=== PATIENT | male | born 1960 | race Native Hawaiian/Other Pacific Islander ===

== ENCOUNTER 2020-08-01 12:25 | Outpatient (REF) | payer BC, SELFPAY ==
--- NOTE | 2020-08-01 12:30 | XR_ITS ---
EXAMINATION: XR SHOULDER, RIGHT CLINICAL INFORMATION: Right shoulder pain. COMPARISON: None TECHNIQUE: AP external rotation, Grashey, scapular Y, and axillary views of the right shoulder. FINDINGS: Mild right acromioclavicular degenerative joint changes are seen. There is no acute fracture or dislocation. The right glenohumeral joint is unremarkable. The soft tissues are unremarkable. XR/XR shoulder RT min 2V IMPRESSION: Mild right acromioclavicular degenerative joint changes. No acute fracture.
== END 2020-08-01 12:26 | disposition home or self-care (01) ==
LOC: HO.XRAY 12:25
PROVIDERS: Visit Provider Internal Medicine
DX: M25.511 Pain in right shoulder (principal)
CPT/HCPCS: 73030

== ENCOUNTER 2020-11-26 09:44 | Outpatient (REF) | payer BC, SELFPAY ==
[2020-11-26 10:36] LABS: MANUAL DIFF FLAG NO
[2020-11-26 10:46] LABS: Basophils Absolute Auto 0.1 X10*3/uL (0.0-0.2); Basophils Percent Auto 0.8 % (0-2); Eosinophils Absolute Auto 0.2 X10*3/uL (0.0-0.4); Eosinophils Percent Auto 2.4 % (0-4); Hemoglobin 16.3 g/dl (14.0-18.0); Imm Gran Abs Auto 0.05 X10*3/uL (0.00-0.03); Imm Gran Pct Auto 0.6 % (0.0-0.4); Lymphocytes Absolute Auto 1.7 X10*3/uL (1.2-4.9); Lymphocytes Percent Auto 21.7 % (20-40); Mean Corpuscular HGB Conc 34.7 g/dl (31.0-36.0); Mean Corpuscular Hemoglobin 33.7 pg (27.0-33.0); Mean Corpuscular Volume 97.1 fL (80-98); Mean Platelet Volume 9.3 fL (9.4-12.4); Monocytes Absolute Auto 0.6 X10*3/uL (0.1-1.2); Monocytes Percent Auto 7.4 % (2-11); Neutrophils Absolute Auto 5.3 X10*3/uL (2.0-8.3); Neutrophils Percent Auto 67.1 % (45-73); Platelet Count 361 X10*3/uL (160-400); Red Blood Count 4.84 X10*6/uL (4.60-5.80); Red Cell Distribution Width 11.4 % (11.0-16.0); White Blood Count 7.8 X10*3/uL (4.8-10.8)
[2020-11-26 11:19] LABS: Alanine Aminotransferase 25 U/L (0-40); Albumin Level 4.8 g/dL (3.5-5.0); Alkaline Phosphatase 88 U/L (39-117); Anion Gap 13 (12-20); Aspartate Amino Transferase 22 U/L (5-37); Bilirubin Total 0.9 mg/dL (0.0-1.0); Blood Urea Nitrogen 18 mg/dL (9-16); Calcium 10.4 mg/dL (8.4-10.2); Carbon Dioxide 30 mmol/L (22-29); Chloride 101 mmol/L (96-108); Cholesterol 282 mg/dL; Estimated Glomerular Filt Rate 56; Glucose Fasting 105 mg/dL (60-99); HDL Cholesterol 53 mg/dL; LDL Cholesterol Calculated 191 mg/dl; Potassium 4.2 mmol/L (3.3-5.1); Sodium 140 mmol/L (135-145); Triglycerides 192 mg/dL
[2020-11-26 11:41] LABS: Prostate Specific Antigen Scr 2.06 ng/mL (<0.05-4.0)
== END 2020-11-26 09:45 | disposition home or self-care (01) ==
LOC: HO.LAB 09:44
PROVIDERS: PCP Internal Medicine; Visit Provider Internal Medicine
DX: Z00.00 Encounter for general adult medical examination without abnormal findings (principal); Z12.5 Encounter for screening for malignant neoplasm of prostate; E11.9 Type 2 diabetes mellitus without complications; R35.1 Nocturia
CPT/HCPCS: 36415; 80053; 80061; 84153; 85025

== ENCOUNTER 2021-08-23 09:28 | Outpatient (REF) | payer OTHER, SELFPAY ==
--- NOTE | ~2021-08-23 | XR_ITS ---
EXAMINATION: XR ANKLE, LEFT CLINICAL INFORMATION: Pain COMPARISON: None TECHNIQUE: AP, lateral, and mortise views of the left ankle. FINDINGS: The malleoli appear intact and the ankle mortise is symmetric. There is no visible acute or healing fracture, dislocation, destructive process. Some mild spurring is seen at the tips of the medial and lateral malleolus. There is no ankle joint narrowing or erosive change. The retrocalcaneal recess is preserved. Posterior calcaneal spurring is present. There is mild soft tissue swelling overlying the medial and lateral malleolus. XR/XR ankle LT 2V IMPRESSION: 1. Mild soft tissue swelling overlying medial and lateral malleolus. No acute bony abnormality. 2. Posterior calcaneal spurs.
[2021-08-23 11:09] LABS: Uric Acid 7.5 mg/dL (3.4-7.0)
== END 2021-08-23 09:29 | disposition home or self-care (01) ==
LOC: HO.XRAY 09:28
PROVIDERS: PCP Internal Medicine; Visit Provider Internal Medicine
DX: M25.572 Pain in left ankle and joints of left foot (principal); M10.9 Gout, unspecified
CPT/HCPCS: 36415; 73600; 84550

== ENCOUNTER 2021-12-06 13:59 | Outpatient (RCR) | payer OTHER, SELFPAY ==
[2021-12-06 14:04] VITALS: BP 128/70; PULSE 75; O2SAT 95
--- NOTE | 2021-12-06 14:47 | MHC.PT.EP ---
[facility] [place] Office [place] Office [place] Office [address] Alvaro Du [address] [phone] F: [phone] F: [phone] F: [phone] F: [phone] Physical Therapy Plan of Care Date of Evaluation: Date of Surgery: Diagnosis: This is a 61 yo male presenting to skilled PT with a script for vertigo. Assessment: This is a 61 yo male presenting to skilled PT with a script for vertigo. Patient reporting that he had symptoms about 4 wks ago. He had a feeling of dizziness, lightheadedness, like I was going to pass out. He also recalled spinning. He saw his MD who prescribed meclizine. As time went on the spinning stopped but he had symptoms looking up or going downstairs. He has a CT scan referral. He now comes to the clinic no longer symptomatic with rolling at night or with turning his head. Examination shows normal oculomotor tests, (-) VBI B, and normal cervical AROM (except extension which is limited). He was (-) for BPPV with tati-hallpike and roll test. Patient demos normal balance scores on DGI and [place]. S/S are not consistent with BPPV at this time, it appears that his symptoms cleared with time. I am putting patient on a 30 day at this time due to lack of vertigo and patient appearing more at baseline. Educated him on anatomy of inner ear, symptoms, management of symptoms and to call our office if anything returned. Frequency and Duration: The patient will be seen 2x/wk for 4wks Short Term Goals: reassess if needed Correction Goals: I in HEP No nystagmus or symptoms in any testing positions No LOB noted and normal scores on balance tests Return to work in full Treatment Plan: Modalities to reduce pain, spasms and effusion. Manual therapy to restore motion and function. Therapeutic exercise to improve strength and flexibility. Neuromuscular re-education for posture and balance. Therapeutic activities to return to functional activities of daily living. Electronically signed by: Baylee Kwan PT Please sign and return to therapist. Thank you for your referral.
--- NOTE | 2022-01-08 12:44 | MHC.PT.DC ---
[facility] [place] Office [place] Office [place] Office [address] Alvaro Du [address] [phone] F: [phone] F: [phone] F: [phone] F: [phone] Physical Therapy Discharge Report Diagnosis: This is a 61 yo male presenting to skilled PT with a script for vertigo. Date of Surgery: Date of Evaluation: 12/06/21 Date of Discharge: 01/08/22 Treatments to Date: 1 Cancellations to Date: 0 No Shows to Date: 0 Discharge Status: Discharge Summary: This is a 61 yo male presenting to skilled PT with a script for vertigo. Patient reporting that he had symptoms about 4 wks ago. He had a feeling of dizziness, lightheadedness, like I was going to pass out. He also recalled spinning. He saw his MD who prescribed meclizine. As time went on the spinning stopped but he had symptoms looking up or going downstairs. He has a CT scan referral. He now comes to the clinic no longer symptomatic with rolling at night or with turning his head. Examination shows normal oculomotor tests, (-) VBI B, and normal cervical AROM (except extension which is limited). He was (-) for BPPV with tati-hallpike and roll test. Patient demos normal balance scores on DGI and [place]. S/S are not consistent with BPPV at this time, it appears that his symptoms cleared with time. I am putting patient on a 30 day at this time due to lack of vertigo and patient appearing more at baseline. Educated him on anatomy of inner ear, symptoms, management of symptoms and to call our office if anything returned. Kept chart open for 30 days prior to DC Electronically signed by: Baylee Kwan PT Please sign and return to therapist. Thank you for your referral.
== END 2022-01-08 12:44 | disposition home or self-care (01) ==
LOC: HO.PTCHIC 13:59
PROVIDERS: PCP Internal Medicine; Visit Provider Internal Medicine
DX: R42 Dizziness and giddiness (principal)
CPT/HCPCS: 97112; 97161

== ENCOUNTER 2022-07-07 10:37 | Outpatient (REF) | payer OTHER, SELFPAY ==
[2022-07-07 10:51] LABS: MANUAL DIFF FLAG NO
[2022-07-07 12:10] LABS: Basophils Percent Auto 0.5 % (0-2); Eosinophils Absolute Auto 0.1 X10*3/uL (0.0-0.4); Hemoglobin 15.6 g/dl (14.0-18.0); Imm Gran Abs Auto 0.04 X10*3/uL (0.00-0.03); Imm Gran Pct Auto 0.7 % (0.0-0.4); Lymphocytes Absolute Auto 1.4 X10*3/uL (1.2-4.9); Lymphocytes Percent Auto 24.3 % (20-40); Mean Corpuscular HGB Conc 34.7 g/dl (31.0-36.0); Mean Corpuscular Hemoglobin 33.4 pg (27.0-33.0); Mean Corpuscular Volume 96.4 fL (80.0-98.0); Mean Platelet Volume 9.4 fL (9.4-12.4); Monocytes Absolute Auto 0.5 X10*3/uL (0.1-1.2); Monocytes Percent Auto 8.8 % (2-11); Neutrophils Absolute Auto 3.8 x10*3/uL (2.0-8.3); Neutrophils Percent Auto 63.7 % (45-73); Platelet Count 326 X10*3/uL (160-400); Red Blood Count 4.67 X10*6/uL (4.60-5.80); White Blood Count 5.9 X10*3/uL (4.8-10.8)
[2022-07-07 12:52] LABS: Alanine Aminotransferase 23 U/L (0-40); Albumin Level 4.6 g/dL (3.5-5.0); Alkaline Phosphatase 80 U/L (39-117); Anion Gap 11 (12-20); Aspartate Amino Transferase 23 U/L (5-37); Bilirubin Total 0.7 mg/dL (0.0-1.0); Blood Urea Nitrogen 16 mg/dL (9-16); Calcium 9.8 mg/dL (8.4-10.2); Carbon Dioxide 30 mmol/L (22-29); Chloride 105 mmol/L (96-108); Cholesterol 256 mg/dL; Estimated Glomerular Filt Rate > 60; Glucose Fasting 97 mg/dL (60-99); HDL Cholesterol 49 mg/dL; LDL Cholesterol Calculated 176 mg/dl; Potassium 3.8 mmol/L (3.3-5.1); Prostate Specific Antigen Scr 1.71 ng/mL (<0.05-4.0); Sodium 142 mmol/L (135-145); Total Protein 7.5 g/dL (6.5-8.0); Triglycerides 159 mg/dL; Uric Acid 6.5 mg/dL (3.4-7.0)
== END 2022-07-07 10:38 | disposition home or self-care (01) ==
LOC: HO.LAB 10:37
PROVIDERS: PCP Internal Medicine; Visit Provider Internal Medicine
DX: Z00.00 Encounter for general adult medical examination without abnormal findings (principal); M10.9 Gout, unspecified; E78.5 Hyperlipidemia, unspecified; I10 Essential (primary) hypertension; Z13.0 Encounter for screening for diseases of the blood and blood-forming organs and certain disorders involving the immune mechanism; Z12.5 Encounter for screening for malignant neoplasm of prostate
CPT/HCPCS: 36415; 80053; 80061; 84153; 84550; 85025

== ENCOUNTER 2023-03-25 13:27 | Outpatient (AMB) | payer OTHER, SELFPAY ==
--- NOTE | 2023-03-25 13:29 | MHC.PC.OV ---
Vital Signs 03/25/23 13:31 Height 5 ft 5 in Weight 185 lb 6 oz BMI 30.8 BP 132/70 Blood Pressure Location Lt brachial Position Sitting Pulse 51 Pulse Source Pulse Oximeter Pulse Oximetry (%) 94 Oxygen Delivery Method Room Air Intake Visit Reasons: 4 month follow up Intake Note: Patient is here to follow up on HTN, Vertigo, Gout. Marble Polisher Required: No Fig Bar Machine Operator: Not Required per policy Accompanied by: Self / Same As Patient Allergies lisinopril Adverse Reaction (Unknown, Verified 03/25/23 13:30) cough HAYFEVER Allergy (Unknown, Uncoded 03/25/23 13:30) RUNNY NOSE/SNEEZING/RUNNY EYES Medication List - Last Reconciled 03/25/23 by Kvng James MD allopurinol 300 mg PO DAILY amlodipine 5 mg PO DAILY cyclobenzaprine 10 mg PO TID PRN hydrochlorothiazide 25 mg PO DAILY meclizine 25 mg PO QID omeprazole 20 mg PO DAILY sertraline 50 mg PO DAILY Tobacco use date assessed: 11/05/22 Dental Screening Dental Screen Date: 03/25/23 Did you have a dental visit in the last 12 months?: Yes Did you have a dental problem in the last 6 months where you did not have access to dental care?: No Was dental information given to patient?: Patient has dentist HPI 4 month follow up HPI Details gout HTN and depression; stable [facility] Medical History (Updated 08/13/22 @ 12:29 by Kvng James MD) Hypertension Surgical History No history of previous surgery Family History (Updated 03/25/23 @ 13:36 by SAMAN Perez) Mother Cardiac arrhythmia Father Stomach cancer Brother No problems noted. Brother No problems noted. Brother No problems noted. Brother No problems noted. Son No problems noted. Family/Other Colon cancer Social History Housing: House Alcohol intake: current Alcohol intake frequency: 0-2 drinks per day Patient Tobacco Use Status: Never used Tobacco e-Cigarette/Vaping Use: Never Used Second Hand Smoke Exposure: No service: No Current occupational status: employed Cognitive needs: No Hearing needs: No Vision needs: Yes (GLASSES) Questionnaire PHQ-9 Over the last 2 weeks, how often have you been bothered by any of the following problems? Depression Screening Interpretation: Negative Source: Developed by Drs. Kavon Verdin, Selina Lindsey, Hayden Almeida and colleagues, with an educational burak from [employer]. Thrive Questionnaire Date Thrive assessed: 07/07/22 ELDER-7 AMB Questionnaire ELDER-7 Date ELDER - 7 assessed: 11/05/22 Source: Developed by Drs. Kavno Verdin, Selina Lindsey, Hayden Almeida and colleagues, with an educational burak from [employer]. Review of Systems Const Denies chills, Denies headache(s) and Denies weight loss ENT Denies headache(s) Card Denies chest pain, Denies syncope, Denies irregular heart rhythm and Denies dyspnea Resp Denies chest congestion, Denies cough and Denies dyspnea GI Denies abdominal pain, Denies change in stool character, Denies nausea and Denies vomiting Musc Denies deformity and Denies joint swelling Neuro Denies syncope and Denies headache(s) Physical exam (Primary Care) Vital Signs: Last Vital Signs Pulse 51 03/25/23 13:31 BP 132/70 03/25/23 13:31 Pulse Ox 94 03/25/23 13:31 Oxygen Delivery Method Room Air 03/25/23 13:31 BMI result Body Mass Index 30.8 Tobacco/Smoking Status: Tobacco use Status Tobacco use date assessed 11/05/22 03/25/23 13:37 Patient Tobacco Use Status Never used Tobacco 03/25/23 13:37 e-Cigarette/Vaping Use Never Used 03/25/23 13:37 Depression Screening Interpretation: Negative Thrive Assessment: Date of Thrive Assessment Date Thrive assessed 07/07/22 03/25/23 13:37 Const General: cooperative, comfortable and no acute distress Chest Chest palpation & inspection: normal inspection of the chest Resp Effort & Inspection: normal respiratory effort Auscultation: clear to auscultation bilaterally Percussion: percussion normal Cardio Jugular venous distension: no JVD Rate: regular rate Rhythm: regular rhythm GI Inspection: Yes normal to inspection Assessment and Plan Assessment & Plan (1) Depression: Code(s): F32.A - Depression, unspecified Plan: stable; same rx (2) Gout: Code(s): M10.9 - Gout, unspecified Plan: stable; same rx (3) Hypertension: Code(s): I10 - Essential (primary) hypertension Plan: stable; same rx Coding Level of Care Code Est Pt Level 4 (77976) Diagnoses Depression F32.A Gout M10.9 Hypertension I10
[2023-03-25 13:31] VITALS: BP 132/70; PULSE 51; O2SAT 94; BMI 30.8
== END 2023-03-25 13:43 | disposition home or self-care (01) ==
PROVIDERS: PCP Internal Medicine; Visit Provider Internal Medicine
DX: F32.A Depression, unspecified (principal); M10.9 Gout, unspecified; I10 Essential (primary) hypertension
CPT/HCPCS: 99214

== ENCOUNTER 2023-07-09 12:51 | Outpatient (AMB) | payer OTHER, SELFPAY ==
[2023-07-09 12:52] VITALS: BP 140/74; PULSE 65; O2SAT 97; BMI 31.9
--- NOTE | 2023-07-09 12:52 | A.OFFPC_ITS ---
Vital Signs 07/09/23 12:52 Height 5 ft 5 in Weight 192 lb BMI 31.9 BP 140/74 H Blood Pressure Location Lt brachial Position Sitting Pulse 65 Pulse Source Pulse Oximeter Pulse Oximetry (%) 97 Oxygen Delivery Method Room Air Intake Visit Reasons: Annual Exam Radiation Therapy Technologist Required: No Channeler: Not Required per policy Accompanied by: Self / Same As Patient Allergies lisinopril Adverse Reaction (Unknown, Verified 07/09/23 12:53) cough HAYFEVER Allergy (Unknown, Uncoded 07/09/23 12:53) RUNNY NOSE/SNEEZING/RUNNY EYES Medication List - Last Reconciled 07/10/23 by Kvng James MD allopurinol 300 mg PO DAILY amlodipine 5 mg PO DAILY cyclobenzaprine 10 mg PO TID PRN hydrochlorothiazide 25 mg PO DAILY meclizine 25 mg PO QID omeprazole 20 mg PO DAILY sertraline 50 mg PO DAILY Tobacco use date assessed: 11/05/22 Fall risk assessment: No Falls in past year Last assessed Fall Risk: 07/09/23 Dental Screening Dental Screen Date: 07/09/23 Did you have a dental visit in the last 12 months?: Yes Did you have a dental problem in the last 6 months where you did not have access to dental care?: No Was dental information given to patient?: Patient has dentist HPI Annual Exam HPI Details HTN Gout and depression on rx; doing well; compliant [facility] Medical History Hypertension Surgical History No history of previous surgery Family History Mother Cardiac arrhythmia Father Stomach cancer Brother No problems noted. Brother No problems noted. Brother No problems noted. Brother No problems noted. Son No problems noted. Family/Other Colon cancer Social History Housing: House Alcohol intake: current Alcohol intake frequency: 0-2 drinks per day Patient Tobacco Use Status: Never used Tobacco e-Cigarette/Vaping Use: Never Used Second Hand Smoke Exposure: No service: No Current occupational status: employed Cognitive needs: No Hearing needs: No Vision needs: Yes (GLASSES) Questionnaire Thrive Questionnaire Date Thrive assessed: 07/09/23 I am a: Patient What is your living situation today?: I have a steady place to live Within the past 12 months, did the food you bought not last and you didn't have the money to get more?: Never true Within the past 12 months, did you worry whether your food would run out before you got money to buy more?: Never true Do you have trouble paying for medicines?: No Do you have trouble getting transportation to medical appointments?: No Do you have trouble paying your heating and electricity bill?: No Do you have trouble taking care of your child, family member or friend?: No Do you have trouble with day-to-day activities such as bathing, preparing meals, shopping, managing finances, etc.?: No Are you currently unemployed and looking for a job?: No Are you interested in more education?: No Please select the resources that you would like help with: None AUDIT C Alcohol Use Questionnaire (AUDIT-C) 1. How often do you have a drink containing alcohol?: Never Total Score: 0 Score Reviewed/Action Taken: Yes ELDER-7 AMB Questionnaire ELDER-7 Date ELDER - 7 assessed: 11/05/22 Source: Developed by Drs. Kavon Verdin, Selina Lindsey, Hayden Almeida and colleagues, with an educational burka from [employer]. Review of Systems Const Denies chills, Denies fatigue, Denies headache(s) and Denies weight loss Eyes Denies change in vision, Denies diplopia and Denies eye pain ENT Denies vertigo, Denies dizziness, Denies headache(s) and Denies nasal discharge Card Denies chest pain, Denies rapid heart rate and Denies dyspnea on exertion Resp Denies chest congestion, Denies cough, Denies pain with cough and Denies dyspnea on exertion GI Denies abdominal pain, Denies hematochezia and Denies change in bowel habits Musc Denies myalgias, Denies arthralgias and Denies joint swelling Skin/Breast Denies lesions and Denies unusual bruising Neuro Denies vertigo, Denies dizziness, Denies headache(s) and Denies focal weakness Endo Denies fatigue Physical exam (Primary Care) Vital Signs: Last Vital Signs Pulse 65 07/09/23 12:52 BP 140/74 H 07/09/23 12:52 Pulse Ox 97 07/09/23 12:52 Oxygen Delivery Method Room Air 07/09/23 12:52 BMI result Body Mass Index 31.9 Tobacco/Smoking Status: Tobacco use Status Tobacco use date assessed 11/05/22 07/09/23 12:59 Patient Tobacco Use Status Never used Tobacco 07/09/23 12:59 e-Cigarette/Vaping Use Never Used 07/09/23 12:59 Thrive Assessment: Date of Thrive Assessment Date Thrive assessed 07/09/23 07/09/23 12:59 Const General: cooperative, healthy appearing and no acute distress Orientation/consciousness: oriented to person, oriented to place and oriented to time HENMT Head: Yes normal to inspection, Yes normocephalic and Yes atraumatic Mouth: Normal oral and palatal mucosa present and tongue normal Throat: Yes posterior oropharynx normal and Yes uvula midline Eyes General: appearance normal, both eyes and all related structures Neck Neck: Yes normal visual inspection, Yes full ROM and Yes no lymphadenopathy Thyroid: Thyroid normal Carotids: normal carotid upstroke Chest Chest palpation & inspection: normal inspection of the chest Resp Effort & Inspection: normal respiratory effort and able to speak in complete sentences Auscultation: clear to auscultation bilaterally Cardio Jugular venous distension: no JVD Palpation: normal PMI Rate: regular rate Rhythm: regular rhythm Heart sounds: S1 normal heart sound present and S2 normal heart sound present GI Inspection: Yes normal to inspection Palpation (GI): Soft to palpation and No hepatosplenomegaly present Auscultation: normal bowel sounds General: Yes no CVA tenderness Back/Spine/Pelvis Back: no CVA tenderness Skin General skin exam: no rashes or lesions noted Neuro General: oriented to person, oriented to place and oriented to time Extrem General: Yes normal to inspection and Yes full ROM Assessment and Plan Assessment & Plan (1) Physical exam: Code(s): Z00.00 - Encounter for general adult medical examination without abnormal findings Plan: do labs (2) Hypertension: Code(s): I10 - Essential (primary) hypertension Plan: stable; same rx (3) Gout: Code(s): M10.9 - Gout, unspecified Plan: stable; same rx (4) Depression: Code(s): F32.A - Depression, unspecified Plan: stable; same rx Orders: Orders Thyroid Stimulating Hormone 07/09/23 E03.9 - Hypothyroidism, unspecified Prostate Specific Antigen Scr 07/09/23 Z00.00 - Encounter for general adult medical examination without abnormal findings Complete Blood Count Auto Diff 07/09/23 D64.9 - Anemia, unspecified XR knee LT 2V 07/09/23 M25.569 - Pain in unspecified knee Lipid Panel 07/09/23 E78.5 - Hyperlipidemia, unspecified Comprehensive [place]. Panel Fast 07/09/23 N28.9 - Disorder of kidney and ureter, unspecified Coding Level of Care Code Est Pt Prev Care 40-64y(84839) Diagnoses Physical exam Z00.00 Hypertension I10 Gout M10.9 Depression F32.A
== END 2023-07-09 13:09 | disposition home or self-care (01) ==
PROVIDERS: Visit Provider Internal Medicine
DX: Z00.00 Encounter for general adult medical examination without abnormal findings (principal); I10 Essential (primary) hypertension; M10.9 Gout, unspecified; F32.A Depression, unspecified
CPT/HCPCS: 99396

== ENCOUNTER 2023-07-09 13:18 | Outpatient (REF) | payer OTHER, SELFPAY ==
--- NOTE | ~2023-07-09 | XR_ITS ---
EXAMINATION: XR KNEE, LEFT CLINICAL INFORMATION: Pain in unspecified knee. COMPARISON: None available. TECHNIQUE: AP and lateral of the left knee. FINDINGS: Trace joint effusion. Small quadriceps intensified. Tiny medial marginal osteophytes with mild medial joint space narrowing. XR/XR knee LT 2V IMPRESSION: Mild degenerative changes.
[2023-07-09 13:31] LABS: MANUAL DIFF FLAG NO
[2023-07-09 14:15] LABS: Basophils Percent Auto 0.4 % (0-2); Eosinophils Absolute Auto 0.1 X10*3/uL (0.0-0.4); Eosinophils Percent Auto 1.2 % (0-4); Hematocrit 44.6 % (42.0-52.0); Hemoglobin 15.7 g/dl (14.0-18.0); Imm Gran Abs Auto 0.05 X10*3/uL (0.00-0.03); Imm Gran Pct Auto 0.6 % (0.0-0.4); Lymphocytes Absolute Auto 1.6 X10*3/uL (1.2-4.9); Lymphocytes Percent Auto 20.4 % (20-40); Mean Corpuscular HGB Conc 35.2 g/dl (31.0-36.0); Mean Corpuscular Hemoglobin 33.9 pg (27.0-33.0); Mean Corpuscular Volume 96.3 fL (80.0-98.0); Mean Platelet Volume 9.5 fL (9.4-12.4); Monocytes Absolute Auto 0.5 X10*3/uL (0.1-1.2); Monocytes Percent Auto 6.7 % (2-11); Neutrophils Absolute Auto 5.5 x10*3/uL (2.0-8.3); Neutrophils Percent Auto 70.7 % (45-73); Platelet Count 314 X10*3/uL (160-400); Red Blood Count 4.63 X10*6/uL (4.60-5.80); Red Cell Distribution Width 11.6 % (11.0-16.0); White Blood Count 7.8 X10*3/uL (4.8-10.8)
[2023-07-09 14:50] LABS: Alanine Aminotransferase 27 U/L (0-40); Albumin Level 4.7 g/dL (3.5-5.0); Alkaline Phosphatase 80 U/L (39-117); Anion Gap 13 (12-20); Aspartate Amino Transferase 29 U/L (5-37); Bilirubin Total 0.8 mg/dL (0.0-1.0); Blood Urea Nitrogen 18 mg/dL (9-16); Calcium 9.8 mg/dL (8.4-10.2); Carbon Dioxide 28 mmol/L (22-29); Chloride 104 mmol/L (96-108); Cholesterol 260 mg/dL (<200); Estimated Glomerular Filt Rate 58; Glucose Fasting 97 mg/dL (60-99); HDL Cholesterol 56 mg/dL (>40); LDL Cholesterol Calculated 155 mg/dL (<100); Sodium 141 mmol/L (135-145); Total Protein 8.1 g/dL (6.5-8.0); Triglycerides 245 mg/dL (<150)
[2023-07-09 15:01] LABS: Prostate Specific Antigen Scr 2.26 ng/mL (<0.05-4.0)
[2023-07-09 15:03] LABS: Thyroid Stimulating Hormone 1.38 uIU/mL (0.32-4.0)
== END 2023-07-09 13:19 | disposition home or self-care (01) ==
LOC: HO.XRAY 13:18
PROVIDERS: PCP Internal Medicine; Visit Provider Internal Medicine
DX: Z00.00 Encounter for general adult medical examination without abnormal findings (principal); Z12.5 Encounter for screening for malignant neoplasm of prostate; D64.9 Anemia, unspecified; E03.9 Hypothyroidism, unspecified; E78.5 Hyperlipidemia, unspecified; N28.9 Disorder of kidney and ureter, unspecified; M25.562 Pain in left knee
CPT/HCPCS: 36415; 73560; 80053; 80061; 84153; 84443; 85025

== ENCOUNTER 2024-02-15 13:26 | Outpatient (AMB) | payer OTHER, SELFPAY ==
--- NOTE | 2024-02-15 13:32 | MHC.PC.OV ---
Vital Signs 02/15/24 13:35 Height 5 ft 5 in Weight 186 lb 6 oz BMI 31.0 BP 130/70 Blood Pressure Location Lt brachial Position Sitting Pulse 72 Pulse Source Pulse Oximeter Pulse Oximetry (%) 95 Oxygen Delivery Method Room Air Intake Visit Reasons: 3 mth f/u Intake Note: Patient is here to follow up on HTN, Depression, Vertigo. Director Design Required: No Tile And Marble Installer: Not Required per policy Accompanied by: Self / Same As Patient Allergies lisinopril Adverse Reaction (Unknown, Verified 02/15/24 13:35) cough HAYFEVER Allergy (Unknown, Uncoded 02/15/24 13:35) RUNNY NOSE/SNEEZING/RUNNY EYES Medication List - Last Reconciled 02/15/24 by Kvng James MD allopurinol 300 mg PO DAILY amlodipine 5 mg PO DAILY cyclobenzaprine 10 mg PO TID PRN hydrochlorothiazide 25 mg PO DAILY meclizine 25 mg PO QID omeprazole 20 mg PO DAILY sertraline 50 mg PO DAILY Tobacco use date assessed: 02/15/24 Fall risk assessment: No Falls in past year Last assessed Fall Risk: 02/15/24 Dental Screening Dental Screen Date: 02/15/24 Did you have a dental visit in the last 12 months?: Yes Did you have a dental problem in the last 6 months where you did not have access to dental care?: No Was dental information given to patient?: Patient has dentist HPI 3 mth f/u HPI Details HTN on rx; doing well PFSH Medical History Hypertension Surgical History No history of previous surgery Family History Mother Cardiac arrhythmia Father Stomach cancer Brother No problems noted. Brother No problems noted. Brother No problems noted. Brother No problems noted. Son No problems noted. Family/Other Colon cancer Social History (Updated 02/15/24 @ 13:39 by SAMAN Perez) Housing: House Alcohol intake: current Alcohol intake frequency: a few times a week Patient Tobacco Use Status: Never used Tobacco e-Cigarette/Vaping Use: Never Used Second Hand Smoke Exposure: No service: No Current occupational status: employed Cognitive needs: No Hearing needs: No Vision needs: Yes (GLASSES) Questionnaire PHQ-9 Over the last 2 weeks, how often have you been bothered by any of the following problems? 1. Little interest or pleasure in doing things: not at all 2. Feeling down, depressed, or hopeless: not at all 3. Trouble falling or staying asleep, or sleeping too much: not at all 4. Feeling tired or having little energy: not at all 5. Poor appetite or overeating: not at all 6. Feeling bad about yourself - or that you are a failure or have let yourself or your family down: not at all 7. Trouble concentrating on things, such as reading the newspaper or watching television: not at all 8. Moving or speaking so slowly that other people could have noticed. Or the opposite - being so fidgety or restless that you have been moving around a lot more than usual: not at all 9. Thoughts that you would be better off or of hurting yourself in some way: not at all Total score: 0 Depression Screening Interpretation: Negative Depression Screening Done: Yes Source: Developed by Drs. Kavon Verdin, Selina Lindsey, Hayden Almeida and colleagues, with an educational burak from [employer]. Thrive Questionnaire Date Thrive assessed: 02/15/24 I am a: Patient What is your living situation today?: I have a steady place to live Within the past 12 months, did the food you bought not last and you didn't have the money to get more?: Never true Within the past 12 months, did you worry whether your food would run out before you got money to buy more?: Never true Do you have trouble paying for medicines?: No Do you have trouble getting transportation to medical appointments?: No Do you have trouble paying your heating and electricity bill?: No Do you have trouble taking care of your child, family member or friend?: No Do you have trouble with day-to-day activities such as bathing, preparing meals, shopping, managing finances, etc.?: No Are you currently unemployed and looking for a job?: No Are you interested in more education?: No Currently or been in a relationship where the following occur: No concerns reported THRIVE Score: 0 AUDIT C Alcohol Use Questionnaire (AUDIT-C) 1. How often do you have a drink containing alcohol?: 2-3 times a week Total Score: 3 ELDER-7 AMB Questionnaire ELDER-7 Date ELDER - 7 assessed: 02/15/24 Feeling nervous, anxious, or on edge: 0 = Not at all Not being able to stop or control worryin = Not at all Worrying too much about different things: 0 = Not at all Trouble relaxin = Not at all Being so restless that it is hard to sit still: 0 = Not at all Becoming easily annoyed or irritable: 0 = Not at all Feeling afraid as if something awful might happen: 0 = Not at all Total ELDER-7 score (0-4 normal; 5-9 mild; 10-14 moderate; 15-21 severe): 0 Source: Developed by Drs. Kavon Verdin, Selina Lindsey, Hayden Almeida and colleagues, with an educational burak from [employer]. Review of Systems Const Denies chills, Denies headache(s) and Denies weight loss ENT Denies headache(s) Card Denies chest pain, Denies syncope, Denies irregular heart rhythm and Denies dyspnea Resp Denies chest congestion, Denies cough and Denies dyspnea GI Denies abdominal pain, Denies change in stool character, Denies nausea and Denies vomiting Musc Denies deformity and Denies joint swelling Neuro Denies syncope and Denies headache(s) Physical exam (Primary Care) Vital Signs: Last Vital Signs Pulse 72 02/15/24 13:35 BP 130/70 02/15/24 13:35 Pulse Ox 95 02/15/24 13:35 Oxygen Delivery Method Room Air 02/15/24 13:35 BMI result Body Mass Index 31.0 Tobacco/Smoking Status: Tobacco use Status Tobacco use date assessed 02/15/24 02/15/24 13:40 Patient Tobacco Use Status Never used Tobacco 02/15/24 13:40 e-Cigarette/Vaping Use Never Used 02/15/24 13:40 PHQ-9: PHQ-9 Score PHQ-9: Total score 0 02/15/24 13:40 Depression Screening Interpretation: Negative Thrive Assessment: Date of Thrive Assessment Date Thrive assessed 02/15/24 02/15/24 13:40 Currently or been in a relationship where the following occur: No concerns reported Const General: cooperative, comfortable, no acute distress and alert Neck Neck: Yes no lymphadenopathy Thyroid: Thyroid normal Resp Effort & Inspection: normal respiratory effort Auscultation: clear to auscultation bilaterally Percussion: percussion normal Cardio Jugular venous distension: no JVD Palpation: normal PMI Rate: regular rate Rhythm: regular rhythm Heart sounds: S1 normal heart sound present and S2 normal heart sound present GI Inspection: Yes normal to inspection Palpation (GI): No hepatosplenomegaly present Skin General skin exam: no rashes or lesions noted Extrem General: Yes no clubbing, cyanosis or edema Assessment and Plan Assessment & Plan (1) Hypertension: Code(s): I10 - Essential (primary) hypertension Plan: stable; same rx Coding Level of Care Code Est Pt Level 3 (59079) Diagnoses Hypertension I10
[2024-02-15 13:35] VITALS: BP 130/70; PULSE 72; O2SAT 95; BMI 31.0
== END 2024-02-15 14:00 | disposition home or self-care (01) ==
PROVIDERS: PCP Internal Medicine; Visit Provider Internal Medicine
DX: I10 Essential (primary) hypertension (principal)
CPT/HCPCS: 99213

== ENCOUNTER 2024-08-11 09:51 | Outpatient (REF) | payer MEDICARE, SELFPAY ==
[2024-08-11 10:42] LABS: MANUAL DIFF FLAG NO
[2024-08-11 10:59] LABS: Basophils Absolute Auto 0.1 X10*3/uL (0.0-0.2); Basophils Percent Auto 0.9 % (0-2); Eosinophils Absolute Auto 0.2 X10*3/uL (0.0-0.4); Eosinophils Percent Auto 2.1 % (0-4); Imm Gran Abs Auto 0.05 X10*3/uL (0.00-0.03); Imm Gran Pct Auto 0.6 % (0.0-0.4); Lymphocytes Absolute Auto 1.9 X10*3/uL (1.2-4.9); Lymphocytes Percent Auto 23.2 % (20-40); Mean Corpuscular HGB Conc 34.8 g/dl (31.0-36.0); Mean Corpuscular Hemoglobin 33.2 pg (27.0-33.0); Mean Corpuscular Volume 95.4 fL (80.0-98.0); Mean Platelet Volume 8.9 fL (9.4-12.4); Monocytes Absolute Auto 0.7 X10*3/uL (0.1-1.2); Monocytes Percent Auto 9.1 % (2-11); Neutrophils Absolute Auto 5.2 x10*3/uL (2.0-8.3); Neutrophils Percent Auto 64.1 % (45-73); Platelet Count 326 X10*3/uL (160-400); Red Blood Count 4.82 X10*6/uL (4.60-5.80); Red Cell Distribution Width 11.4 % (11.0-16.0)
[2024-08-11 12:33] LABS: Prostate Specific Antigen Scr 2.26 ng/mL (<0.05-4.0)
[2024-08-11 12:58] LABS: Alanine Aminotransferase 30 U/L (0-40); Albumin Level 4.6 g/dL (3.5-5.0); Alkaline Phosphatase 79 U/L (39-117); Anion Gap 11 (12-20); Aspartate Amino Transferase 28 U/L (5-37); Bilirubin Total 0.7 mg/dL (0.0-1.0); Blood Urea Nitrogen 16 mg/dL (9-16); Carbon Dioxide 30 mmol/L (22-29); Chloride 103 mmol/L (96-108); Cholesterol 267 mg/dL (<200); Estimated Glomerular Filt Rate 59; Glucose Fasting 107 mg/dL (60-99); HDL Cholesterol 53 mg/dL (>40); LDL Cholesterol Calculated 180 mg/dL (<100); Potassium 3.6 mmol/L (3.3-5.1); Sodium 140 mmol/L (135-145); Total Protein 8.1 g/dL (6.5-8.0); Triglycerides 172 mg/dL (<150)
[2024-08-11 13:13] LABS: Thyroid Stimulating Hormone 2.09 uIU/mL (0.32-4.0)
== END 2024-08-11 09:52 | disposition home or self-care (01) ==
LOC: HO.LAB 09:51
PROVIDERS: PCP Internal Medicine; Visit Provider Internal Medicine
DX: Z00.00 Encounter for general adult medical examination without abnormal findings (principal); I10 Essential (primary) hypertension; F32.A Depression, unspecified; Z79.899 Other long term (current) drug therapy; Z13.220 Encounter for screening for lipoid disorders; Z13.29 Encounter for screening for other suspected endocrine disorder; Z13.0 Encounter for screening for diseases of the blood and blood-forming organs and certain disorders involving the immune mechanism; Z13.9 Encounter for screening, unspecified; Z12.5 Encounter for screening for malignant neoplasm of prostate
CPT/HCPCS: 36415; 80053; 80061; 84153; 84443; 85025; 96127; 99212

== ENCOUNTER 2024-08-11 09:51 | Outpatient (AMB) | payer MEDICARE, SELFPAY ==
--- NOTE | 2024-08-11 09:53 | A.OFFPC_ITS ---
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 Accompanied by: Self / Same As Patient Allergies lisinopril Adverse Reaction (Unknown, Verified 08/11/24 09:54) cough HAYFEVER Allergy (Unknown, Uncoded 02/15/24 13:35) RUNNY NOSE/SNEEZING/RUNNY EYES Medication List - Last Reconciled 08/11/24 by Kvng James MD allopurinol 300 mg PO DAILY amlodipine 5 mg PO DAILY cyclobenzaprine 10 mg PO TID PRN hydrochlorothiazide 25 mg PO DAILY meclizine 25 mg PO QID omeprazole 20 mg PO DAILY sertraline 50 mg PO DAILY Tobacco use date assessed: 08/11/24 Fall risk assessment: No Falls in past year Last assessed Fall Risk: 08/11/24 Dental Screening Dental Screen Date: 08/11/24 Did you have a dental visit in the last 12 months?: Yes Did you have a dental problem in the last 6 months where you did not have access to dental care?: No Was dental information given to patient?: Patient has dentist HPI PE and Med review HPI Details HTN on Rx; doing well; depression on rx PFSH Medical History Hypertension Surgical History No history of previous surgery Family History Mother Cardiac arrhythmia Father Stomach cancer Brother No problems noted. Brother No problems noted. Brother No problems noted. Brother No problems noted. Son No problems noted. Family/Other Colon cancer Social History Housing: House Alcohol intake: current Alcohol intake frequency: a few times a week Patient Tobacco Use Status: Never used Tobacco e-Cigarette/Vaping Use: Never Used Second Hand Smoke Exposure: No service: No Current occupational status: employed Current occupational exposures/hazards: No Cognitive needs: No Hearing needs: No Vision needs: Yes (GLASSES) Questionnaire PHQ-9 Over the last 2 weeks, how often have you been bothered by any of the following problems? 1. Little interest or pleasure in doing things: not at all 2. Feeling down, depressed, or hopeless: not at all 3. Trouble falling or staying asleep, or sleeping too much: not at all 4. Feeling tired or having little energy: not at all 5. Poor appetite or overeating: not at all 6. Feeling bad about yourself - or that you are a failure or have let yourself or your family down: not at all 7. Trouble concentrating on things, such as reading the newspaper or watching television: not at all 8. Moving or speaking so slowly that other people could have noticed. Or the opposite - being so fidgety or restless that you have been moving around a lot more than usual: not at all 9. Thoughts that you would be better off or of hurting yourself in some way: not at all Total score: 0 Depression Screening Interpretation: Negative Depression Screening Done: Yes Source: Developed by Drs. Kavon Verdin, Selina Lindsey, Hayden Almeida and colleagues, with an educational burak from [employer]. Thrive Questionnaire Date Thrive assessed: 08/11/24 I am a: Patient What is your living situation today?: I have a steady place to live Within the past 12 months, did the food you bought not last and you didn't have the money to get more?: Never true Within the past 12 months, did you worry whether your food would run out before you got money to buy more?: Never true Do you have trouble paying for medicines?: No Do you have trouble getting transportation to medical appointments?: No Do you have trouble paying your heating and electricity bill?: No Do you have trouble taking care of your child, family member or friend?: No Do you have trouble with day-to-day activities such as bathing, preparing meals, shopping, managing finances, etc.?: No Are you currently unemployed and looking for a job?: No Are you interested in more education?: No Please select the resources that you would like help with: None Currently or been in a relationship where the following occur: No concerns reported THRIVE Score: 0 AUDIT C Alcohol Use Questionnaire (AUDIT-C) 1. How often do you have a drink containing alcohol?: 2-4 times a month 2. How many drinks containing alcohol do you have on a typical day when you are drinking?: 3 or 4 3. How often do you have six or more drinks on one occasion?: Less than monthly Total Score: 4 ELDER-7 AMB Questionnaire ELDER-7 Date ELDER - 7 assessed: 08/11/24 Feeling nervous, anxious, or on edge: 0 = Not at all Not being able to stop or control worryin = Not at all Worrying too much about different things: 0 = Not at all Trouble relaxin = Not at all Being so restless that it is hard to sit still: 0 = Not at all Becoming easily annoyed or irritable: 0 = Not at all Feeling afraid as if something awful might happen: 0 = Not at all Total ELDER-7 score (0-4 normal; 5-9 mild; 10-14 moderate; 15-21 severe): 0 Source: Developed by Drs. Kavon Verdin, Selina Lindsey, Hayden Almeida and colleagues, with an educational burak from [employer]. Review of Systems Const Denies chills, Denies fatigue, Denies headache(s) and Denies weight loss Eyes Denies change in vision, Denies diplopia and Denies eye pain ENT Denies vertigo, Denies dizziness, Denies headache(s) and Denies nasal discharge Card Denies chest pain, Denies rapid heart rate and Denies dyspnea on exertion Resp Denies chest congestion, Denies cough, Denies pain with cough and Denies dyspnea on exertion GI Denies abdominal pain, Denies hematochezia and Denies change in bowel habits Musc Denies myalgias, Denies arthralgias and Denies joint swelling Skin/Breast Denies lesions and Denies unusual bruising Neuro Denies vertigo, Denies dizziness, Denies headache(s) and Denies focal weakness Endo Denies fatigue Physical exam (Primary Care) Vital Signs: Last Vital Signs Pulse 73 08/11/24 09:55 BP 146/80 H 08/11/24 09:55 Pulse Ox 97 08/11/24 09:55 Oxygen Delivery Method Room Air 08/11/24 09:55 BMI result Body Mass Index 32.1 Tobacco/Smoking Status: Tobacco use Status Tobacco use date assessed 08/11/24 08/11/24 09:55 Patient Tobacco Use Status Never used Tobacco 08/11/24 09:55 e-Cigarette/Vaping Use Never Used 08/11/24 09:55 PHQ-9: PHQ-9 Score PHQ-9: Total score 0 08/11/24 10:01 Depression Screening Interpretation: Negative Thrive Assessment: Date of Thrive Assessment Date Thrive assessed 08/11/24 08/11/24 09:55 Currently or been in a relationship where the following occur: No concerns reported Const General: cooperative, healthy appearing and no acute distress Orientation/consciousness: oriented to person, oriented to place and oriented to time HENMT Head: Yes normal to inspection, Yes normocephalic and Yes atraumatic Mouth: Normal oral and palatal mucosa present and tongue normal Throat: Yes posterior oropharynx normal and Yes uvula midline Eyes General: appearance normal, both eyes and all related structures Neck Neck: Yes normal visual inspection, Yes full ROM and Yes no lymphadenopathy Thyroid: Thyroid normal Carotids: normal carotid upstroke Chest Chest palpation & inspection: normal inspection of the chest Resp Effort & Inspection: normal respiratory effort and able to speak in complete sentences Auscultation: clear to auscultation bilaterally Cardio Jugular venous distension: no JVD Palpation: normal PMI Rate: regular rate Rhythm: regular rhythm Heart sounds: S1 normal heart sound present and S2 normal heart sound present GI Inspection: Yes normal to inspection Palpation (GI): Soft to palpation and No hepatosplenomegaly present Auscultation: normal bowel sounds General: Yes no CVA tenderness Back/Spine/Pelvis Back: no CVA tenderness Skin General skin exam: no rashes or lesions noted Neuro General: oriented to person, oriented to place and oriented to time Extrem General: Yes normal to inspection and Yes full ROM Coding Level of Care Code Est Pt Prev Care >65y(24198) Diagnoses Physical exam Z00.00 Hypertension I10 Depression F32.A Assessment & Plan Assessment & Plan (1) Physical exam: Code(s): Z00.00 - Encounter for general adult medical examination without abnormal findings Category: Medical Plan: stable; do labs (2) Hypertension: Code(s): I10 - Essential (primary) hypertension Category: Medical Plan: stable; same rx (3) Depression: Code(s): F32.A - Depression, unspecified Category: Medical Plan: same rx Orders: Orders Lipid Panel Today Z13.220 - Encounter for screening for lipoid disorders Prostate Specific Antigen Scr Today Z00.00 - Encounter for general adult medical examination without abnormal findings Thyroid Stimulating Hormone Today Z13.29 - Encounter for screening for other suspected endocrine disorder Complete Blood Count Auto Diff Today Z13.0 - Encounter for screening for diseases of the blood and blood-forming organs and certain disorders involving the immune mechanism Comprehensive [place]. Panel Fast Today Z13.9 - Encounter for screening, unspecified Medications: Refilled hydrochlorothiazide 25 mg PO DAILY 90 tabs 0RF sertraline 50 mg PO DAILY 90 tabs 0RF amlodipine 5 mg PO DAILY 90 tabs 0RF
[2024-08-11 09:55] VITALS: BP 146/80; PULSE 73; O2SAT 97; BMI 32.1
== END 2024-08-11 10:19 | disposition home or self-care (01) ==
PROVIDERS: PCP Internal Medicine; Visit Provider Internal Medicine
DX: I10 Essential (primary) hypertension (principal); F32.A Depression, unspecified

== ENCOUNTER 2024-11-09 12:49 | Outpatient (REF) | payer MEDICARE, OTHER, SELFPAY ==
[2024-11-09 14:01] LABS: MANUAL DIFF FLAG NO
[2024-11-09 14:10] LABS: Basophils Percent Auto 0.5 % (0-2); Eosinophils Absolute Auto 0.1 X10*3/uL (0.0-0.4); Eosinophils Percent Auto 1.7 % (0-4); Hemoglobin 15.7 g/dl (14.0-18.0); Imm Gran Abs Auto 0.03 X10*3/uL (0.00-0.03); Imm Gran Pct Auto 0.5 % (0.0-0.4); Lymphocytes Absolute Auto 1.5 X10*3/uL (1.2-4.9); Mean Corpuscular HGB Conc 35.7 g/dl (31.0-36.0); Mean Corpuscular Hemoglobin 32.6 pg (27.0-33.0); Mean Corpuscular Volume 91.3 fL (80.0-98.0); Monocytes Absolute Auto 0.5 X10*3/uL (0.1-1.2); Monocytes Percent Auto 7.4 % (2-11); Neutrophils Absolute Auto 4.5 x10*3/uL (2.0-8.3); Neutrophils Percent Auto 67.9 % (45-73); Platelet Count 354 X10*3/uL (160-400); Red Blood Count 4.82 X10*6/uL (4.60-5.80); Red Cell Distribution Width 11.7 % (11.0-16.0); White Blood Count 6.6 X10*3/uL (4.8-10.8)
[2024-11-09 14:45] LABS: Appearance Urine Clear; Color Urine Yellow; Glucose Urine UA Negative (Negative); Leukocyte Esterase Urine Negative (Negative); Nitrite Urine Negative (Negative); PH 6.5 (5.0-9.0); Specific Gravity - Urine 1.015 (1.005-1.025); Urine Blood Negative (Negative); Urine Ketones Negative (Negative); Urine Protein Negative (Neg-Trace)
[2024-11-09 14:46] LABS: Alanine Aminotransferase 26 U/L (0-40); Albumin Level 4.7 g/dL (3.5-5.0); Alkaline Phosphatase 85 U/L (39-117); Anion Gap 8 (12-20); Aspartate Amino Transferase 28 U/L (5-37); Bilirubin Total 0.5 mg/dL (0.0-1.0); Blood Urea Nitrogen 23 mg/dL (9-16); Calcium 9.9 mg/dL (8.4-10.2); Carbon Dioxide 29 mmol/L (22-29); Chloride 105 mmol/L (96-108); Cholesterol 229 mg/dL (<200); Estimated Glomerular Filt Rate > 60; Glucose Fasting 101 mg/dL (60-99); HDL Cholesterol 48 mg/dL (>40); LDL Cholesterol Calculated 148 mg/dL (<100); Potassium 3.4 mmol/L (3.3-5.1); Sodium 139 mmol/L (135-145); Total Protein 8.2 g/dL (6.5-8.0); Triglycerides 167 mg/dL (<150); Uric Acid 9.5 mg/dL (3.4-7.0)
[2024-11-09 15:02] LABS: TSH reflex Free T4 1.71 uIU/mL (0.32-4.0); Vitamin D 25-OH Total 54.5 ng/mL (>30)
== END 2024-11-09 12:50 | disposition home or self-care (01) ==
LOC: HO.LAB 12:49
DX: I10 Essential (primary) hypertension (principal); M1A.9XX0 Chronic gout, unspecified, without tophus (tophi); E78.2 Mixed hyperlipidemia; M25.579 Pain in unspecified ankle and joints of unspecified foot; F32.A Depression, unspecified
CPT/HCPCS: 36415; 80053; 80061; 81003; 82306; 84443; 84550; 85025; 99212

== ENCOUNTER 2024-11-09 12:49 | Outpatient (AMB) | payer MEDICARE, OTHER, SELFPAY ==
[2024-11-09 13:00] VITALS: BP 112/64; PULSE 57; RESP 20; TEMP 37; O2SAT 97; BMI 30.7
--- NOTE | 2024-11-09 13:00 | MHC.PC.OV ---
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 Required: No Accompanied by: Self / Same As Patient Allergies lisinopril Adverse Reaction (Unknown, Verified 11/09/24 13:13) cough HAYFEVER Allergy (Unknown, Uncoded 11/09/24 13:13) RUNNY NOSE/SNEEZING/RUNNY EYES Medication List - Last Reconciled 11/09/24 by INDER Valladares allopurinol 300 mg PO DAILY PRN amlodipine 5 mg PO DAILY fluticasone propionate 50 mcg/actuation 1 spray intranasal DAILY hydrochlorothiazide 25 mg PO DAILY meclizine 25 mg PO QID PRN omeprazole 20 mg PO DAILY PRN sertraline 50 mg PO DAILY Tobacco use date assessed: 11/09/24 Fall risk assessment: No Falls in past year Last assessed Fall Risk: 11/09/24 Dental Screening Dental Screen Date: 11/09/24 Did you have a dental visit in the last 12 months?: Yes Did you have a dental problem in the last 6 months where you did not have access to dental care?: No Was dental information given to patient?: Patient has dentist HPI RADHA DR James/3 month f/u med review HPI Details Patient is a 64-year-old male with significant past medical history of hypertension, gout and mixed Hypercholesterolemia and hypertriglyceridemia. Presenting today for transition of care from Dr. James who retired Patient reports that he got a call from a nurse saying that Dr. James wanted to start him on medication for his high cholesterol He reports that he said okay but has not heard anything since and no medication was ordered The patient reports that since then he has been doing his own research and making dietary modifications Reports that he will also like to speak to a dietitian to see what else he could do differently Patient reports that he would like his cholesterol rechecked and if the changes that he made is not working, he will go on a statin He is going to get blood work done today. The patient reports that he is not surprised about his high cholesterol reports that he was a heavy drinker. He has cut down a lot compared to before. Reports only drinks occasionally at times Patient denies shortness of breath, chest pain, heart palpitation or dizziness Denies any change in bowel habits or abdominal pain. Denies any urinary symptoms [facility] Medical History Hypertension Surgical History No history of previous surgery Family History Mother Cardiac arrhythmia Father Stomach cancer Brother No problems noted. Brother No problems noted. Brother No problems noted. Brother No problems noted. Son No problems noted. Family/Other Colon cancer Social History Housing: House Alcohol intake: current Alcohol intake frequency: a few times a week Patient Tobacco Use Status: Never used Tobacco e-Cigarette/Vaping Use: Never Used Second Hand Smoke Exposure: No service: Yes (Retired; [employer]) Current occupational status: employed Current occupational exposures/hazards: No Cognitive needs: No Hearing needs: No Vision needs: Yes (GLASSES) Questionnaire Thrive Questionnaire Date Thrive assessed: 11/09/24 I am a: Patient What is your living situation today?: I have a steady place to live Within the past 12 months, did the food you bought not last and you didn't have the money to get more?: Never true Within the past 12 months, did you worry whether your food would run out before you got money to buy more?: Never true Do you have trouble paying for medicines?: No Do you have trouble getting transportation to medical appointments?: No Do you have trouble paying your heating and electricity bill?: No Do you have trouble taking care of your child, family member or friend?: No Do you have trouble with day-to-day activities such as bathing, preparing meals, shopping, managing finances, etc.?: No Are you currently unemployed and looking for a job?: No Are you interested in more education?: No Please select the resources that you would like help with: None Currently or been in a relationship where the following occur: No concerns reported THRIVE Score: 0 AUDIT C Alcohol Use Questionnaire (AUDIT-C) 1. How often do you have a drink containing alcohol?: Never 3. How often do you have six or more drinks on one occasion?: Never Total Score: 0 Score Reviewed/Action Taken: Yes ELDER-7 AMB Questionnaire ELDER-7 Date ELDER - 7 assessed: 08/11/24 Source: Developed by Drs. Kavon Verdin, Selina Lindsey, Hayden Almeida and colleagues, with an educational burak from [employer]. Review of Systems Const Denies headache(s) Eyes Denies loss of vision ENT Denies vertigo, Denies dizziness, Denies headache(s) and Denies sore throat Card Denies chest pain, Denies leg edema and Denies lightheadedness Resp Denies cough, Denies hemoptysis and Denies wheezing GI Denies abdominal pain, Denies melena, Denies constipation, Denies diarrhea and Denies vomiting Denies dysuria, Denies urinary frequency and Denies urinary urgency Musc Denies arthralgias, Denies joint swelling, Denies numbness and Denies tingling Neuro Denies Abnormal speech present, Denies behavioral changes, Denies vertigo, Denies dizziness, Denies headache(s), Denies loss of vision, Denies memory loss, Denies numbness and Denies tingling Psych Denies anxiety, Denies behavioral changes, Denies depression, Denies memory loss and Denies panic attacks Placido/Lymph Denies easy bleeding and Denies easy bruising Aller/Immun Denies wheezing Physical exam (Primary Care) Vital Signs: Last Vital Signs Temp 98.6 F 11/09/24 13:00 Pulse 57 11/09/24 13:00 Resp 20 11/09/24 13:00 BP 112/64 11/09/24 13:00 Pulse Ox 97 11/09/24 13:00 Oxygen Delivery Method Room Air 11/09/24 13:00 BMI result Body Mass Index 30.7 Tobacco/Smoking Status: Tobacco use Status Tobacco use date assessed 11/09/24 11/09/24 13:12 Patient Tobacco Use Status Never used Tobacco 11/09/24 13:00 e-Cigarette/Vaping Use Never Used 11/09/24 13:00 Thrive Assessment: Date of Thrive Assessment Date Thrive assessed 11/09/24 11/09/24 13:12 Currently or been in a relationship where the following occur: No concerns reported Const General: healthy appearing, no acute distress, alert and awake Nutritional Appearance: well nourished Orientation/consciousness: oriented to person, oriented to place and oriented to time HENMT Ears: TM's normal bilaterally General nose exam: Normal nasal mucous membranes and turbinates present Eyes Conjunctivae: conjunctivae normal Sclerae: sclerae normal Pupils: Equal, round and reactive pupils present Neck Neck: Yes no lymphadenopathy and Yes no JVD Thyroid: Thyroid normal Carotids: no bruits Resp Effort & Inspection: normal respiratory effort and not tachypneic Auscultation: no crackles, no rales, no rhonchi and no wheezes Cardio Rate: regular rate Rhythm: regular rhythm Heart sounds: no murmurs and normal S1 and S2 GI Palpation (GI): Soft to palpation, nontender, no hepatomegaly and no splenomegaly Auscultation: normal bowel sounds Skin General skin exam: no rashes or lesions noted and dry skin Neuro General: oriented to person, oriented to place and oriented to time Cranial nerves: Yes Equal, round and reactive pupils present Speech: No Abnormal speech present Gait exam (Neuro): Normal gait present Motor exam (neuro): no tremor noted Extrem Right upper extremity: full ROM Left upper extremity: full ROM Right lower extremity: full ROM; no edema Left lower extremity: full ROM; no edema Psych Mental Status: mental status grossly normal Speech and movement: Normal speech and movement present Affect: normal affect Attitude: cooperative Thought process: Normal thought process present Coding Level of Care Code Est Pt Level 4 (09723) Diagnoses Hypertension, unspecified type I10 Hypertension type: unspecified Chronic gout involving toe without tophus, unspecified cause, unspecified laterality [id number] Gout site: toe Gout etiology: unspecified cause Chronicity: chronic Laterality: unspecified laterality Presence of tophus: without tophus Mixed hypercholesterolemia and hypertriglyceridemia E78.2 Time Spent (min) 38 Assessment & Plan Assessment & Plan (1) Hypertension: Code(s): I10 - Essential (primary) hypertension Category: Medical Qualifiers: Hypertension type: unspecified Qualified Code(s): I10 - Essential (primary) hypertension Plan: Blood pressure 112/64 in office Reinforced low-sodium diet Continue amlodipine 5 mg daily, hydrochlorothiazide 25 mg daily (2) Gout: Code(s): M10.9 - Gout, unspecified Category: Medical Qualifiers: Gout site: toe Gout etiology: unspecified cause Chronicity: chronic Laterality: unspecified laterality Presence of tophus: without tophus Qualified Code(s): M1A.9XX0 - Chronic gout, unspecified, without tophus (tophi) Plan: The patient has an order for allopurinol 300 mg daily p.r.n.. Discussed with the patient that this medication works better when taking daily to prevent gout. Patient reports that he has not have any flare ups in a while. We will check uric acid and advise (3) Mixed hypercholesterolemia and hypertriglyceridemia: Code(s): E78.2 - Mixed hyperlipidemia Category: Medical Plan: Patient reports that it was updated that his cholesterols were high and medical management was recommended. Reports that he did not hear back or saw any new orders placed. Reports that he has been making dietary modifications since and would like his cholesterol rechecked to see if and they are working. Reports that if his cholesterol is not trending in the right direction he will go on the recommended medication. 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 - Depression, unspecified, I10 - Essential (primary) hypertension, M10.9 - Gout, unspecified, M25.579 - Pain in unspecified ankle and joints of unspecified foot Lipid Panel 11/09/24 INDER Valladares 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
== END 2024-11-09 13:44 | disposition home or self-care (01) ==
LOC: HO.HMCH 12:50
DX: I10 Essential (primary) hypertension (principal); M1A.9XX0 Chronic gout, unspecified, without tophus (tophi); E78.2 Mixed hyperlipidemia

== ENCOUNTER 2025-03-20 08:47 | Outpatient (REF) | payer MEDICARE, SELFPAY ==
[2025-03-20 10:02] LABS: MANUAL DIFF FLAG NO
[2025-03-20 10:10] LABS: Hematocrit 44.2 % (42.0-52.0); Hemoglobin 15.0 g/dl (14.0-18.0); Imm Gran Abs Auto 0.02 X10*3/uL (0.00-0.03); Imm Gran Pct Auto 0.4 % (0.0-0.4); Lymphocytes Absolute Auto 1.2 X10*3/uL (1.2-4.9); Mean Corpuscular HGB Conc 33.9 g/dl (31.0-36.0); Mean Corpuscular Hemoglobin 32.3 pg (27.0-33.0); Mean Corpuscular Volume 95.3 fL (80.0-98.0); NRBC Abs Auto 0.000 X10*3/uL (0.0-0.012); NRBC Pct Auto 0.0 /100WBC (0.0-0.2); Platelet Count 288 X10*3/uL (160-400); Red Blood Count 4.64 X10*6/uL (4.60-5.80); White Blood Count 5.4 X10*3/uL (4.8-10.8)
[2025-03-20 11:05] LABS: Alanine Aminotransferase 26 U/L (0-40); Albumin Level 4.8 g/dL (3.5-5.0); Alkaline Phosphatase 91 U/L (39-117); Anion Gap 11 (12-20); Aspartate Amino Transferase 33 U/L (5-37); Blood Urea Nitrogen 13 mg/dL (9-16); Calcium 9.4 mg/dL (8.4-10.2); Carbon Dioxide 26 mmol/L (22-29); Chloride 109 mmol/L (96-108); Cholesterol 240 mg/dL (<200); Estimated Glomerular Filt Rate > 60; HDL Cholesterol 47 mg/dL (>40); Potassium 3.9 mmol/L (3.3-5.1); Sodium 142 mmol/L (135-145); Total Protein 7.6 g/dL (6.5-8.0); Triglycerides 126 mg/dL (<150)
[2025-03-20 11:18] LABS: Appearance Urine Clear; Glucose Urine UA Negative (Negative); PH 5.5 (5.0-9.0); Specific Gravity - Urine 1.015 (1.005-1.025)
[2025-03-20 11:32] LABS: Uric Acid 7.9 mg/dL (3.4-7.0)
== END 2025-03-20 08:48 | disposition home or self-care (01) ==
LOC: HO.LAB 08:47
DX: E78.2 Mixed hyperlipidemia (principal); E78.3 Hyperchylomicronemia; I10 Essential (primary) hypertension; F32.A Depression, unspecified; M1A.9XX0 Chronic gout, unspecified, without tophus (tophi); R12 Heartburn; R42 Dizziness and giddiness
CPT/HCPCS: 36415; 80053; 80061; 81003; 84443; 84550; 85025; 99212

== ENCOUNTER 2025-03-20 08:47 | Outpatient (AMB) | payer MEDICARE, SELFPAY ==
--- NOTE | 2025-03-20 08:37 | MHC.PC.OV ---
Vital Signs 03/20/25 08:54 03/20/25 09:54 Height 5 ft 5 in Weight 186 lb BMI 30.9 BP 136/78 136/68 Blood Pressure Location Lt brachial Lt brachial Position Sitting Sitting Pulse 58 Pulse Source Pulse Oximeter Pulse Oximetry (%) 98 Oxygen Delivery Method Room Air Intake Visit Reasons: hld/htn/gout Allergies lisinopril Adverse Reaction (Unknown, Verified 03/20/25 09:11) cough HAYFEVER Allergy (Unknown, Uncoded 03/20/25 09:11) RUNNY NOSE/SNEEZING/RUNNY EYES Medication List - Last Reconciled 03/20/25 by INDER Valladares allopurinol 300 mg PO DAILY PRN amlodipine 5 mg PO DAILY fluticasone propionate 50 mcg/actuation 1 spray intranasal DAILY hydrochlorothiazide 25 mg PO DAILY meclizine 25 mg PO QID PRN omeprazole 20 mg PO DAILY PRN sertraline 50 mg PO DAILY Tobacco use date assessed: 11/09/24 Fall risk assessment: No Falls in past year Dental Screening Dental Screen Date: 11/09/24 HPI hld/htn/gout HPI Details The patient is a 64-year-old male presenting for management of hyperlipidemia, gout, and hypertension. The patient has been monitoring his cholesterol levels, which have shown improvement since August, with a focus on reducing triglycerides through dietary changes. He has been advised by a director workers compensation to avoid ultra-processed foods and to choose items with lower sodium and carbohydrate content. The patient experienced a gout flare-up a few years ago, primarily affecting his left ankle, which was initially mistaken for a sprain due to swelling and pain. He was prescribed maintenance medication but also used tart tran juice as a natural remedy. Currently, he takes medication as needed when symptoms arise. The patient has a history of hypertension and is currently on medication, although there have been issues with prescription refills. He has made significant lifestyle changes, including reducing alcohol intake and improving his diet by incorporating more fruits, vegetables, and lean proteins. His blood pressure was recorded at 136/68 mmHg during the visit. [facility] Medical History Hypertension Surgical History No history of previous surgery Family History Mother Cardiac arrhythmia Father Stomach cancer Brother No problems noted. Brother No problems noted. Brother No problems noted. Brother No problems noted. Son No problems noted. Family/Other Colon cancer Social History Housing: House Alcohol intake: current Alcohol intake frequency: a few times a week Patient Tobacco Use Status: Never used Tobacco Tobacco use type: Cigarette e-Cigarette/Vaping Use: Never Used Second Hand Smoke Exposure: No service: Yes (Retired; [employer]) Current occupational status: employed Current occupational exposures/hazards: No Cognitive needs: No Hearing needs: No Vision needs: Yes (GLASSES) Questionnaire Thrive Questionnaire Date Thrive assessed: 11/09/24 ELDER-7 AMB Questionnaire ELDER-7 Date ELDER - 7 assessed: 08/11/24 Source: Developed by Drs. Kavon Verdin, Selina Lindsey, Hayden Almeida and colleagues, with an educational burak from [employer]. Review of Systems Const Denies body aches, Denies chills, Denies fever(s), Denies headache(s) and Denies poor appetite Eyes Reports no additional complaints ENT Denies dysphagia, Denies dizziness, Denies headache(s) and Denies odynophagia Card Denies chest pain, Denies syncope, Denies edema, Denies irregular heart rhythm, Denies lightheadedness and Denies dyspnea Resp Denies cough and Denies dyspnea GI Denies abdominal pain, Denies constipation, Denies dysphagia, Denies heartburn, Denies diarrhea, Denies nausea, Denies odynophagia and Denies vomiting Reports no additional complaints Musc Reports no additional complaints and Denies abnormal gait Skin/Breast Reports system reviewed and no additional complaints, except as documented Neuro Denies abnormal gait, Denies dizziness, Denies syncope and Denies headache(s) Psych Reports anxiety (Improved with treatment) Physical exam (Primary Care) Vital Signs: Last Vital Signs Pulse 58 03/20/25 08:54 BP 136/68 03/20/25 09:54 Pulse Ox 98 03/20/25 08:54 Oxygen Delivery Method Room Air 03/20/25 08:54 BMI result Body Mass Index 30.9 Tobacco/Smoking Status: Tobacco use Status Tobacco use date assessed 11/09/24 03/20/25 08:40 Patient Tobacco Use Status Never used Tobacco 03/20/25 08:40 Tobacco use type Cigarette 03/20/25 09:01 e-Cigarette/Vaping Use Never Used 03/20/25 08:40 Thrive Assessment: Date of Thrive Assessment Date Thrive assessed 08/11/24 03/20/25 08:47 Const General: cooperative, healthy appearing, comfortable and no acute distress Orientation/consciousness: patient oriented x3 HENMT Head: Yes normocephalic Ears: hearing grossly normal bilaterally General nose exam: Normal external nose present Eyes General: appearance normal, both eyes and all related structures Conjunctivae: conjunctivae normal Neck Neck: Yes full ROM and Yes no lymphadenopathy Resp Effort & Inspection: normal respiratory effort Auscultation: clear to auscultation bilaterally, no crackles, no rales, no rhonchi and no wheezes Cardio Rate: regular rate Rhythm: regular rhythm GI Palpation (GI): Soft to palpation and nontender Auscultation: normal bowel sounds Skin General skin exam: no rashes or lesions noted Neuro General: patient oriented x3 Gait exam (Neuro): Normal gait present Extrem General: Yes normal to inspection, Yes full ROM and No edema Right lower extremity: full ROM; no edema Left lower extremity: full ROM; no edema Psych Affect: normal affect Attitude: cooperative Insight: Good insight present (Psych) Judgement: Good judgement present (Psych) Coding Level of Care Code Est Pt Level 3 (86909) Diagnoses Mixed hyperglyceridemia E78.3 Hypertension, unspecified type I10 Hypertension type: unspecified Depression, unspecified depression type F32.A Depression Type: unspecified Chronic gout involving toe without tophus, unspecified cause, unspecified laterality [id number].[id number] Chronicity: chronic Gout etiology: unspecified cause Gout site: toe Laterality: unspecified laterality Presence of tophus: without tophus Heartburn R12 Time Spent (min) 37 Assessment & Plan Assessment & Plan (1) 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 LDL 148 on 11/09/24 from 180 on 08/11/2024. Showing a decreased in cholesterol between August and November. Patient has not completed his follow up labs as yet. Reinforced low-cholesterol diet and activity as tolerated (2) Hypertension: Code(s): I10 - Essential (primary) hypertension Category: Medical Qualifiers: Hypertension type: unspecified Qualified Code(s): I10 - Essential (primary) hypertension Plan: Patient reports that only one of his blood pressure medication got filled. He only has been taking this medication for a couple of weeks since it originally ran out. Blood pressure in office is 136/68, so he is wondering if he still needs both the medication to control his blood pressure since he has been making lifestyle changes. Discussed with the patient that his goal blood pressure, is a systolic less than 130 mmhg. So ideally, he should be on both medication, reinforced low-salt diet (3) Depression: Code(s): F32.A - Depression, unspecified Category: Medical Qualifiers: Depression Type: unspecified Qualified Code(s): F32.A - Depression, unspecified Plan: Stable Continue sertraline 50 mg Denies SI/HI (4) Gout: Code(s): M10.9 - Gout, unspecified Category: Medical Qualifiers: Chronicity: chronic Gout etiology: unspecified cause Gout site: toe Laterality: unspecified laterality Presence of tophus: without tophus Qualified Code(s): M1A.9XX0 - Chronic gout, unspecified, without tophus (tophi) Plan: Was elevated at 9.5 in November, however the patient has been asymptomatic and is currently not taking his allopurinol 300 mg daily. We will continue to monitor his lifting ankle for pain or swollen. (5) Heartburn: Code(s): R12 - Heartburn Category: Medical Plan: Denies heartburn. Reports that this is occasional depending on what he eats He takes omeprazole 20 mg p.r.n. Medications: Refilled amlodipine 5 mg PO DAILY 90 tabs 3RF hydrochlorothiazide 25 mg PO DAILY 90 tabs 3RF
[2025-03-20 08:54] VITALS: BP 136/78; PULSE 58; O2SAT 98; BMI 30.9
--- OUTSIDE RECORDS SUMMARY | 2025-03-20 09:13 | XMS_ITS | Patient Health Record ---
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 Name Role Phone Kvng James MD Primary Care Provider Unavaila Edouard Allan Unavailable [phone] Reason For Referral No Information Medications Medication SIG (Take, Route, Fr equency, Duration) Notes Start Date End Date Status Ventolin HFA Active vicodin 1 tab Oral Active Omeprazole 20 MG 1 tablet Orally Once a day Active Fluorouracil 5 % 1 application to aff ected area Externally Twice a day under occlusion; Duration: 30 days 05/26/2014 Act juan Problems Problem Type SNOMED Code ICD Code Onset Dates Problem Status W/U Status Risk Notes Problem Dermatitis (382332943) Dermatitis (692.9) Active confirmed Problem Keratoma (02087216) Keratoma (701.1) Active confirmed Problem Pain in limb (46639445) Pain in Limb (729.5) Active confirmed Problem Pruritic disorders (569622002) Pruritis (698.9) Active confirmed Problem Verruca plantaris (68514410) Verruca Plantaris (078.19) Active confirmed Confirmed by Bx Plan Of Treatment Pending Test Test Name Order Date [id number] Destruction, 1-14 06/09/2014 [id number] Biopsy 0.5cm 05/26/2014 Insurance Providers Payer Name Payer Address Payer Phone Subscriber Number Group Number Insured Name Patient Relationship to Insured Coverage Start Date Coverage End Date [facility] [address] [place] [address] [phone] [id number] Ciro Plasencia Self - patient is the insured Medical (General) History Medical History History ICD Code asthma Chicken pox Sciatica Reflux
[2025-03-20 09:54] VITALS: BP 136/68
== END 2025-03-20 09:42 | disposition home or self-care (01) ==
LOC: HO.HMCH 08:48
DX: E78.3 Hyperchylomicronemia (principal); I10 Essential (primary) hypertension; F32.A Depression, unspecified; M1A.9XX0 Chronic gout, unspecified, without tophus (tophi); R12 Heartburn

== ENCOUNTER 2025-06-21 13:19 | Outpatient (AMB) | payer MEDICARE, OTHER, SELFPAY ==
[2025-06-21 13:39] VITALS: BP 128/62; PULSE 64; RESP 18; O2SAT 97; BMI 31.1
--- NOTE | 2025-06-21 13:39 | A.OFFPC_ITS ---
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 Allergies lisinopril Adverse Reaction (Unknown, Verified 06/21/25 13:55) cough HAYFEVER Allergy (Unknown, Uncoded 06/21/25 13:55) RUNNY NOSE/SNEEZING/RUNNY EYES Medication List - Last Reconciled 06/21/25 by INDER Valladares allopurinol 300 mg PO DAILY PRN amlodipine 5 mg PO DAILY fluticasone propionate 50 mcg/actuation 1 spray intranasal DAILY hydrochlorothiazide 25 mg PO DAILY meclizine 25 mg PO QID PRN omeprazole 20 mg PO DAILY PRN sertraline 50 mg PO DAILY Tobacco use date assessed: 06/21/25 Fall risk assessment: No Falls in past year Last assessed Fall Risk: 06/21/25 Dental Screening Dental Screen Date: 06/21/25 Did you have a dental visit in the last 12 months?: Yes Did you have a dental problem in the last 6 months where you did not have access to dental care?: No Was dental information given to patient?: Patient has dentist HPI HPI Comments History of Present Illness Details History of Present Illness The patient is a 64-year-old male presenting for management of his chronic con ditions and medication refills. His blood pressure is reported to be well-controlled with amlodipine and is at a good level currently. His daily medications include Zoloft. He inquired about a hydrchlorothiazide prescription which had been previously dropped. He also notes experiencing heartburn and may need a refill for it. The patient reports a history of challenges with portion control and overeating, a topic he has discussed with a dietitian. He attributes this to being retired and less busy. He started exercising in November. Health Maintenance The patient was reminded that a lab order is in the system to be completed a week before his next annual physical. His challenges with portion control and diet were acknowledged, which he has previously discussed with a dietitian. Social History - The patient is retired, which he feels contributes to changes in his eating habits as he is not as busy as he used to be. - He has difficulty with portion control and acknowledges eating more than he should. - He began exercising in November. Results - Labs: Recent labs were reviewed, aguila grider specific results were not detailed in the conversation. [facility] Medical History Hypertension Surgical History No history of previous surgery Family History Mother Cardiac arrhythmia Father Stomach cancer Brother No problems noted. Brother No problems noted. Brother No problems noted. Brother No problems noted. Son No problems noted. Family/Other Colon cancer Social History Housing: House Alcohol intake: current Alcohol intake frequency: a few times a week Patient Tobacco Use Status: Never used Tobacco Tobacco use type: Cigarette e-Cigarette/Vaping Use: Never Used Second Hand Smoke Exposure: No service: Yes (Retired; [employer]) Current occupational status: employed Current occupational exposures/hazards: No Cognitive needs: No Hearing needs: No Vision needs: Yes (GLASSES) Questionnaire PHQ-9 Over the last 2 weeks, how often have you been bothered by any of the following problems? 1. Little interest or pleasure in doing things: not at all 2. Feeling down, depressed, or hopeless: not at all 3. Trouble falling or staying asleep, or sleeping too much: not at all 4. Feeling tired or having little energy: not at all 5. Poor appetite or overeating: not at all 6. Feeling bad about yourself - or that you are a failure or have let yourself or your family down: not at all 7. Trouble concentrating on things, such as reading the newspaper or watching television: not at all 8. Moving or speaking so slowly that other people could have noticed. Or the opposite - being so fidgety or restless that you have been moving around a lot more than usual: not at all 9. Thoughts that you would be better off or of hurting yourself in some way: not at all Total score: 0 Depression Screening Interpretation: Negative Depression Screening Done: Yes Source: Developed by Drs. Kavon Verdin, Hayden Billy and colleagues, with an educational burak from [employer]. Thrive Questionnaire Date Thrive assessed: 08/11/24 I am a: Patient What is your living situation today?: I have a steady place to live Within the past 12 months, did the food you bought not last and you didn't have the money to get more?: Never true Within the past 12 months, did you worry whether your food would run out before you got money to buy more?: Never true Do you have trouble paying for medicines?: No Do you have trouble getting transportation to medical appointments?: No Do you have trouble paying your heating and electricity bill?: No Do you have trouble taking care of your child, family member or friend?: No Do you have trouble with day-to-day activities such as bathing, preparing meals, shopping, managing finances, etc.?: No Are you currently unemployed and looking for a job?: No Are you interested in more education?: No Please select the resources that you would like help with: None Currently or been in a relationship where the following occur: No concerns reported THRIVE Score: 0 AUDIT C Alcohol Use Questionnaire (AUDIT-C) 1. How often do you have a drink containing alcohol?: Never 3. How often do you have six or more drinks on one occasion?: Never Total Score: 0 ELDER-7 AMB Questionnaire ELDER-7 Date ELDER - 7 assessed: 06/21/25 Feeling nervous, anxious, or on edge: 0 = Not at all Not being able to stop or control worryin = Not at all Worrying too much about different things: 0 = Not at all Trouble relaxin = Not at all Being so restless that it is hard to sit still: 0 = Not at all Becoming easily annoyed or irritable: 0 = Not at all Feeling afraid as if something awful might happen: 0 = Not at all Total ELDER-7 score (0-4 normal; 5-9 mild; 10-14 moderate; 15-21 severe): 0 Source: Developed by Selina Stout Kurt Kroenke and colleagues, with an educational burak from [employer]. Review of Systems Narrative Review of Systems - Gastrointestinal: Reports experiencing heartburn. Const Denies body aches, Denies chills, Denies fever(s), Denies headache(s) and Denies poor appetite Eyes Reports no additional complaints ENT Denies dysphagia, Denies dizziness, Denies headache(s) and Denies odynophagia Card Denies chest pain, Denies syncope, Denies edema, Denies irregular heart rhythm, Denies lightheadedness and Denies dyspnea Resp Denies cough and Denies dyspnea GI Denies abdominal pain, Denies constipation, Denies dysphagia, Denies heartburn, Denies diarrhea, Denies nausea, Denies odynophagia and Denies vomiting Reports no additional complaints Musc Reports no additional complaints and Denies abnormal gait Skin/Breast Reports system reviewed and no additional complaints, except as documented Neuro Denies abnormal gait, Denies dizziness, Denies syncope and Denies headache(s) Psych Reports anxiety (Improved with treatment) Physical exam (Primary Care) Vital Signs: Last Vital Signs Pulse 64 06/21/25 13:39 Resp 18 06/21/25 13:39 BP 128/62 06/21/25 13:39 Pulse Ox 97 06/21/25 13:39 Oxygen Delivery Method Room Air 06/21/25 13:39 BMI result Body Mass Index 31.1 Tobacco/Smoking Status: Tobacco use Status Tobacco use date assessed 06/21/25 06/21/25 13:47 Patient Tobacco Use Status Never used Tobacco 06/21/25 13:47 Tobacco use type Cigarette 06/21/25 13:47 e-Cigarette/Vaping Use Never Used 06/21/25 13:47 PHQ-9: PHQ-9 Score PHQ-9: Total score 0 06/21/25 13:52 Depression Screening Interpretation: Negative Thrive Assessment: Date of Thrive Assessment Date Thrive assessed 08/11/24 06/21/25 13:47 Currently or been in a relationship where the following occur: No concerns reported Narrative Physical Exam - Vitals: Blood pressure was rechecked and noted to be at a good level. Const General: cooperative, healthy appearing, comfortable and no acute distress Orientation/consciousness: patient oriented x3 HENMT Head: Yes normocephalic Ears: hearing grossly normal bilaterally General nose exam: Normal external nose present Eyes General: appearance normal, both eyes and all related structures Conjunctivae: conjunctivae normal Neck Neck: Yes full ROM and Yes no lymphadenopathy Resp Effort & Inspection: normal respiratory effort Auscultation: clear to auscultation bilaterally, no crackles, no rales, no rhonchi and no wheezes Cardio Rate: regular rate Rhythm: regular rhythm GI Palpation (GI): Soft to palpation and nontender Auscultation: normal bowel sounds Skin General skin exam: no rashes or lesions noted Neuro General: patient oriented x3 Gait exam (Neuro): Normal gait present Extrem General: Yes normal to inspection, Yes full ROM and No edema Right lower extremity: full ROM; no edema Left lower extremity: full ROM; no edema Psych Affect: normal affect Attitude: cooperative Insight: Good insight present (Psych) Judgement: Good judgement present (Psych) Results Reviewed Results Reviewed: Laboratory Tests 03/20/25 03/20/25 09:58 10:01 WBC 5.4 RBC 4.64 Hgb 15.0 Hct 44.2 MCV 95.3 MCH 32.3 MCHC 33.9 RDW 11.9 Sodium 142 Potassium 3.9 Chloride 109 H Carbon Dioxide 26 Anion Gap 11 L BUN 13 Creatinine 1.16 Estimated GFR > 60 Fasting Glucose 103 H Uric Acid 7.9 H Calcium 9.4 Total Bilirubin 0.6 AST 33 ALT 26 Alkaline Phosphatase 91 Total Protein 7.6 Albumin 4.8 Triglycerides 126 Cholesterol 240 H LDL Cholesterol, Calc 168 H HDL Cholesterol 47 TSH 1.06 Urine Color Yellow Urine Appearance Clear Urine pH 5.5 Ur Specific [place] 1.015 Urine Protein Negative Urine Glucose (UA) Negative Urine Ketones Negative Urine Blood Negative Urine Nitrite Negative Ur Leukocyte Esterase Negative Coding Level of Care Code Est Pt Level 4 (26452) Diagnoses Mixed hyperglyceridemia E78.3 Hypertension, unspecified type I10 Hypertension type: unspecified Depression, unspecified depression type F32.A Depression Type: unspecified Chronic gout involving toe without tophus, unspecified cause, unspecified laterality M1A.9XX0 Gout site: toe Gout etiology: unspecified cause Chronicity: chronic Laterality: unspecified laterality Presence of tophus: without tophus Heartburn R12 Time Spent (min) 37 Assessment & Plan Assessment & Plan (1) Mixed hyperglyceridemia: Code(s): 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 Category: Medical Plan: LDL 168 increased from 148, triglycerides 126, decreased from 167 Discussed lifestyle modifications including dietary changes and physical activity (2) Hypertension: Code(s): I10 - Essential (primary) hypertension Category: Medical Qualifiers: Hypertension type: unspecified Qualified Code(s): I10 - Essential (primary) hypertension Plan: Blood pressure 128/62-systolic goal less than 130 mmhg Has not been taking hydrochlorothiazide, continue amlodipine 5 mg daily We will continue to monitor blood pressure and we will reorder hydrochlo rothiazide if the patient blood pressure spikes. (3) Depression: Code(s): F32.A - Depression, unspecified Category: Medical Qualifiers: Depression Type: unspecified Qualified Code(s): F32.A - Depression, unspecified Plan: Stable Continue sertraline 50 mg Denies SI/HI (4) Gout: Code(s): M10.9 - Gout, unspecified Category: Medical Qualifiers: Gout site: toe Gout etiology: unspecified cause Chronicity: chronic Laterality: unspecified laterality Presence of tophus: without tophus Qualified Code(s): M1A.9XX0 - Chronic gout, unspecified, without tophus (tophi) Plan: Uric acid 7.9 decreased from 9.5 Asymptomatic, we will continue to monitor Continue allopurinol 300 mg daily p.r.n. (5) Heartburn: Code(s): R12 - Heartburn Category: Medical Plan: Denies heartburn. Reports that this is occasional depending on what he eats He takes omeprazole 20 mg p.r.n. Plan Plan Patient was informed and verbally consented to the use of an ambient scribe for clinic note documentation during this visit. 1. Hypertension The patient's blood pressure is well controlled. He will continue taking amlodipine. 2. Gastroesophageal Reflux Disease The patient reports heartburn and may need a refill for his medication. He was advised to notify the clinic when he needs the prescription refilled. Discussion Notes I reviewed the patient's blood pressure, which is well-managed on amlodipine, and we will continue the current dosage. We discussed his medications, including his daily Zoloft, and addressed his question about a discontinued hydrocodone prescription. Regarding his heartburn, I advised him to contact the office for a refill when needed. We also discussed his ongoing challenges with portion control, which he has previously addressed with a dietitian. I informed him that an order for his annual labs is already in the system, and he should complete them a week before his next yearly appointment. Patient Instructions - Continue taking your current medications as prescribed, including amlodipine for blood pressure and your daily Zoloft. - Please contact our office when you need a refill for your heartburn medication. - Continue your efforts with diet and portion control as you have discussed with your dietitian. - An order for your annual lab work is in the system. - Please have these labs drawn about one week before your next yearly check-up. Orders: Orders Complete Blood Count Auto Diff 06/21/25 E78.2 - Mixed hyperlipidemia, E78.3 - H yperchylomicronemia, F32.A - Depression, unspecified, I10 - Essential (primary) hypertension, M1A.9XX0 - Chronic gout, unspecified, without tophus (tophi), R42 - Dizziness and giddiness Vitamin D 25-OH Total 06/21/25 E78.2 - Mixed hyperlipidemia, 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, F32.A - Depression, unspecified, I10 - Essential (primary) hypertension, M1A.9XX0 - Chronic gout, unspecified, without tophus (tophi), R42 - Dizziness and giddiness Uric Acid 06/21/25 E78.2 - Mixed hyperlipidemia, 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, F32.A - Depression, unspecified, I10 - Essential (primary) hypertension, M1A.9XX0 - Chronic gout, unspecified, without tophus (tophi), R42 - Dizziness and giddiness
--- OUTSIDE RECORDS SUMMARY | 2025-06-22 01:16 | XMS_ITS | Patient Health Record ---
[facility] Organization [facility] Address [address] [place] [address] Care Team Providers Care Tool Crib Attendant Name Role Phone Kvng James MD Primary Care Provider Unavaila Edouard Allan Unavailable [phone] Reason For Referral No Information Medications Medication [...] Status W/U Status Risk Notes Problem Dermatitis (936247434) Dermatitis (692.9) Active confirmed Problem Keratoma (01620783) Keratoma (701.1) Active confirmed Problem Pain in limb (13852564) Pain in Limb (729.5) Active confirmed Problem Pruritic disorders (938837845) Pruritis (698.9) Active confirmed Problem Verruca plantaris (82342083) Verruca Plantaris (078.19) Active confirmed Confirmed by Bx Plan Of Treatment Pending Test Test Name Order Date [id number] Destruction, 1-14 06/09/2014 [id number] Biopsy 0.5cm 05/26/2014 Insurance Providers Payer Name Payer Address Payer Phone Subscriber Number Group Number Insured Name Patient Relationship to Insured Coverage Start Date Coverage End Date [facility] [id number] [place] [address] [id number] Ciro Plasencia Self - patient is the insured Medical (General) History Medical History History ICD Code asthma Chicken pox Sciatica Reflux
== END 2025-06-21 14:26 | disposition home or self-care (01) ==
LOC: HO.HMCH 13:20
DX: E78.3 Hyperchylomicronemia (principal); I10 Essential (primary) hypertension; F32.A Depression, unspecified; M1A.9XX0 Chronic gout, unspecified, without tophus (tophi); R12 Heartburn

== ENCOUNTER → 2025-06-21 13:19 | Outpatient (BNVA) | payer MEDICARE, SELFPAY | DX: E78.3 Hyperchylomicronemia (principal); I10 Essential (primary) hypertension; F32.A Depression, unspecified; M1A.9XX0 Chronic gout, unspecified, without tophus (tophi); R12 Heartburn | CPT/HCPCS: 99212 ==